=== PATIENT | female | born 1990 | race Caucasian/White ===

== ENCOUNTER 2017-04-22 17:52 | Emergency (ER) | payer OTHER ==
[2017-04-22 18:28] VITALS: BP 104/69
[2017-04-22] MEDS ORDERED: Ibuprofen 800 MG Tab PO ONE (18:48)
--- NOTE | 2017-04-22 18:49 | EDM.PDOC ---
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 She ran out today. Patient usually goes to Dr. No but was in the shower all day due to her pain and was unable to call him. When she got out of the shower this evening she felt her knees because pain was so severe. Patient does have anxiety and has meds for this. Review of systems: As per history of present illness and below otherwise all systems reviewed and negative. Past medical history: As per history of present illness and as reviewed below otherwise noncontributory. Surgical history: As per history of present illness and as reviewed below otherwise noncontributory. Social history: No reported history of drug or alcohol abuse. Family history: As per history of present illness and as reviewed below otherwise noncontributory. Physical exam: General: Well developed, well nourished in NAD, tearful HEENT: Atraumatic, normocephalic, pupils reactive, negative for conjunctival pallor or scleral icterus, mucous membranes moist, throat clear, neck supple, nontender, trachea midline. Poor dentition with multiple dental caries Lungs: Clear to auscultation, breath sounds equal bilaterally, chest nontender. Heart: S1S2, regular, negative for clicks, rubs, or JVD. Abdomen: Soft, nondistended, nontender. Negative for masses or hepatosplenomegaly. Negative for costovertebral tenderness. Pelvis: Stable nontender. Genitourinary: Deferred. Rectal: Deferred. Extremities: Atraumatic, negative for cords or calf pain. Neurovascular unremarkable. Neuro: Awake, alert, oriented. Cranial nerves II through XII unremarkable. Cerebellum unremarkable. Motor and sensory unremarkable throughout. Exam nonfocal. Diagnostics: [] Therapeutics: [] Impression: []Chronic pain Plan: [] Definitive disposition and diagnosis as appropriate pending reevaluation and review of above. Oral/Mouth Pain Score (Numeric/FACES): 8 - Related Data Allergies Allergy/AdvReac Type Severity Reaction Status Date / Time grass Allergy Hives Uncoded 04/22/17 18:28 Home Meds: Home Meds Azithromycin [IJD: Azithromycin] 250 mg PO DAILY 04/22/17 [History] Diclofenac Sodium [IJD: Diclofenac Sodium] 75 mg PO .TWICE DAILY W MEALS PRN # 20 tab.ec 04/22/17 [Rx] hydrOXYzine HCl [Atarax] 25 mg PO DAILY 04/22/17 [History] traMADol [Ultram] 50 mg PO Q6H PRN 04/22/17 [History] Past Medical History HEENT History: Reports: Other (See Below) Other HEENT History: patient has jaw arthritis, and broken teeth Cardiovascular History: Reports: None Respiratory History: Reports: Asthma Gastrointestinal History: Reports: None Genitourinary History: Reports: None [employer] History: Reports: None Musculoskeletal History: Reports: None Neurological History: Reports: None Psychiatric History: Reports: None Endocrine/Metabolic History: Reports: None Hematologic History: Reports: Anemia Immunologic History: Reports: None Oncologic (Cancer) History: Reports: None Dermatologic History: Reports: None - Infectious Disease History Infectious Disease History: Reports: Chicken Pox - Past Surgical History Head Surgeries/Procedures: Reports: None HEENT Surgical History: Reports: Tonsillectomy Musculoskeletal Surgical History: Reports: None Dermatological Surgical History: Reports: None Social & Family History - Family History Family Medical History: Noncontributory - Tobacco Use Smoking Status *Q: Current Every Day Smoker Years of Tobacco use: 5 Packs/Tins Daily: 0.5 - Caffeine Use Caffeine Use: Reports: Coffee, Energy Drinks - Alcohol Use Days Per Week of Alcohol Use: 1 Number of Drinks Per Day: 3 Total Drinks Per Week: 3 - Recreational Drug Use Recreational Drug Use: No Drug Use in Last 12 Months: No Recreational Drug Type: Reports: Methamphetamine (2 years ago 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 living in [place] - quit cold turkey and has not used) ED ROS ENT - Review of Systems Review Of Systems: See Below (See history of present illness) ED EXAM, ENT - Physical Exam Exam: See Below (See history of present illness) Course - Vital Signs Last Recorded V/S: Last Vital Signs Temp 99 F 04/22/17 18:24 Pulse 124 H 04/22/17 18:24 Resp 12 04/22/17 18:24 BP 104/69 04/22/17 18:24 Pulse Ox 97 04/22/17 18:24 - Orders/Labs/Meds Meds: Medications Discontinued Medications Generic Name Dose Route Start Last Admin Trade Name Garettq PRN Reason Stop Dose Admin Ibuprofen 800 mg 04/22/17 18:48 Motrin PO 04/22/17 18:49 ONETIME ONE Departure - Departure Time of Disposition: 18:51 Disposition: Home, Self-Care 01 Condition: Good Clinical Impression: Chronic jaw pain - Discharge Information Prescriptions: Diclofenac Sodium [IJD: Diclofenac Sodium] 75 mg PO .TWICE DAILY W MEALS PRN # 20 tab.ec PRN Reason: Pain Referrals: Johnny No DO [Physician] - (As needed) Forms: ED Department Discharge Additional Instructions: The following information is given to patients seen in the emergency department who are being discharged to home. This information is to outline your options for follow-up care. We provide all patients seen in our emergency department with a follow-up referral. The need for follow-up, as well as the timing and circumstances, are variable depending upon the specifics of your emergency department visit. If you don't have a primary care physician on staff, we will provide you with a referral. We always advise you to contact your personal physician following an emergency department visit to inform them of the circumstance of the visit and for follow-up with them and/or the need for any referrals to a consulting specialist. The emergency department will also refer you to a specialist when appropriate. This referral assures that you have the opportunity for follow-up care with a specialist. All of these measure are taken in an effort to provide you with optimal care, which includes your follow-up. Under all circumstances we always encourage you to contact your private physician who remains a resource for coordinating your care. When calling for follow-up care, please make the office aware that this follow-up is from your recent emergency room visit. If for any reason you are refused follow-up, please contact the [facility] Emergency Department at and asked to speak to the emergency department charge nurse. Diclofenac as directed for pain, heat to jaw soft diet follow-up with Dr. No next available appointment
== END 2017-04-22 19:02 | disposition home or self-care (01) ==
LOC: MW.ED 17:52
DX: G89.29 Other chronic pain (principal); R68.84 Jaw pain; F17.210 Nicotine dependence, cigarettes, uncomplicated; Z91.09 Other allergy status, other than to drugs and biological substances
CPT/HCPCS: 99282; A9270

== ENCOUNTER 2021-01-03 16:16 | Emergency (ER) | payer SELFPAY ==
[2021-01-03 17:22] VITALS: BP 136/73; PULSE 82
[2021-01-03] MEDS ORDERED: Acetaminophen/oxyCODONE 325-10 MG Tab PO ONE (17:43)
[2021-01-03] MEDS ORDERED: HYDROmorphone 1 MG/ML Syringe IM ONE (17:54)
[2021-01-03] MEDS ORDERED: ALPRAZolam 0.5 MG Tab PO ONE (17:54)
--- NOTE | 2021-01-03 18:19 | EDM.PDOC ---
<En Avila - Last Filed: 01/03/21 18:41> ED HPI GENERAL MEDICAL PROBLEM - General Chief Complaint: Upper Extremity Injury/Pain Stated Complaint: WRIST INJURY Time Seen by Provider: 01/03/21 17:15 - Related Data Allergies Allergy/AdvReac Type Severity Reaction Status Date / Time grass Allergy Hives Uncoded 01/03/21 16:42 Home Meds: Home Meds Azithromycin [IJD: Azithromycin] 250 mg PO DAILY 04/22/17 [History] Diclofenac Sodium [IJD: Diclofenac Sodium] 75 mg PO .TWICE DAILY W MEALS PRN #20 tab.ec 04/22/17 [Rx] hydrOXYzine HCl [Atarax] 25 mg PO DAILY 04/22/17 [History] traMADol [Ultram] 50 mg PO Q6H PRN 04/22/17 [History] Acetaminophen/oxyCODONE [Percocet 325-10 MG] 1 tab PO Q4H PRN #24 tab 01/03/21 [Rx] ED TRAUMA EXTREMITY PROCEDURES - Splinting Left Upper Extremity Splint Site: wrist Pre-Procedure NV Status: Normal Post-Procedure NV Status: Normal Splint Material: Fiberglass Splint Design: Posterior Applied & Form Fitted By: Nurse Provider Post-Splint Application NV Check: NV Status Normal Complications: No Departure - Departure Disposition: Home, Self-Care 01 Clinical Impression: Other intraarticular fracture of lower end of left radius, initial encounter for open fracture type IIIA, IIIB, or IIIC - Discharge Information Prescriptions: Acetaminophen/oxyCODONE [Percocet 325-10 MG] 1 tab PO Q4H PRN #24 tab PRN Reason: Pain (Severe 7-10) Instructions: Radial Fracture, Cast or Splint Care, Adult, [id number] Referrals: Yair Santoyo MD [Primary Care Provider] - Aleksander Rowley MD [Ordering Only Provider] - Forms: ED Department Discharge Additional Instructions: Ice and elevate. You need to follow-up with Dr. De La Cruz. Call the [facility] in [place] and get an appointment Dr. Cortez early next week. [facility] - Primary Care [address] [place] [id number] [address] [place] [address] The following information is given to patients seen in the emergency department who are being discharged to home. This information is to outline your options for follow-up care. We provide all patients seen in our emergency department with a follow-up referral. The need for follow-up, as well as the timing and circumstances, are variable depending upon the specifics of your emergency department visit. If you don't have a primary care physician on staff, we will provide you with a referral. We always advise you to contact your personal physician following an emergency department visit to inform them of the circumstance of the visit and for follow-up with them and/or the need for any referrals to a consulting specialist. The emergency department will also refer you to a specialist when appropriate. This referral assures that you have the opportunity for follow-up care with a specialist. All of these measure are taken in an effort to provide you with optimal care, which includes your follow-up. Under all circumstances we always encourage you to contact your private physician who remains a resource for coordinating your care. When calling for follow-up care, please make the office aware that this follow-up is from your recent emergency room visit. If for any reason you are refused follow-up, please contact the [facility] Emergency Department at and asked to speak to the emergency department charge nurse. <Charles Fields - Last Filed: 01/04/21 05:55> ED HPI GENERAL MEDICAL PROBLEM - History of Present Illness INITIAL COMMENTS - FREE TEXT/NARRATIVE: History of present illness: [] The patient fell off a hover board just prior to arrival. She has injury to her left wrist. There is deformity and severe pain. Is worse with movement. Review of systems: As per history of present illness and below otherwise all systems reviewed and negative. Past medical history: As per history of present illness and as reviewed below otherwise noncontributory. Surgical history: As per history of present illness and as reviewed below otherwise noncontributory. Social history: No reported history of drug or alcohol abuse. Family history: As per history of present illness and as reviewed below otherwise noncontributory. Physical exam: Constitutional - well developed, well-nourished and in no acute distress HEENT - normocephalic, no evidence of trauma - external nose and mouth normal - no mass in neck and no JVD - mucosae moist EYES - full EOM, PERRL, no icterus - no evidence of inflammation, injection, or drainage Respiratory - no respiratory distress, equal bilateral expansion Cardiovascular the capillary refill and warmth and color intact in the distal left upper extremity. Musculoskeletal deformity of the left wrist with tenderness at the distal radius. No gross deformity of long bones or joints - no tenderness, swelling or edema Neurologic -motor sensory intact in the distal left upper extremity alert and oriented times four - CN II-XII grossly intact - motor sensory and coordination symmetrically normal Psychiatric - appropriate mood and affect with normal thought content Hematologic - No petechiae or purpura - mucosa appropriate color and sclera not pale - normal nail bed color and refill Integument - no rash or evidence of trauma - normal turgor Diagnostics: [] Therapeutics: [] Impression: [] Plan: [] Definitive disposition and diagnosis as appropriate pending reevaluation and review of above. left wrist Pain Score (Numeric/FACES): 10 Past Medical History HEENT History: Reports: Other (See Below) Other HEENT History: patient has jaw arthritis, and broken teeth Cardiovascular History: Reports: None Respiratory History: Reports: Asthma Gastrointestinal History: Reports: None Genitourinary History: Reports: None [employer] History: Reports: None Musculoskeletal History: Reports: None Neurological History: Reports: None Psychiatric History: Reports: ADHD, Anxiety, PTSD Endocrine/Metabolic History: Reports: None Hematologic History: Reports: Anemia Immunologic History: Reports: None Oncologic (Cancer) History: Reports: None Dermatologic History: Reports: None - Infectious Disease History Infectious Disease History: Reports: Chicken Pox - Past Surgical History Head Surgeries/Procedures: Reports: None HEENT Surgical History: Reports: Tonsillectomy Musculoskeletal Surgical History: Reports: None Dermatological Surgical History: Reports: None Social & Family History - Family History Family Medical History: No Pertinent Family History - Tobacco Use Tobacco Use Status *Q: Current Every Day Tobacco User Years of Tobacco use: 10 Packs/Tins Daily: 1 - Caffeine Use Caffeine Use: Reports: Coffee, Energy Drinks - Recreational Drug Use Recreational Drug Use: No Review of Systems - Review of Systems Review Of Systems: Comprehensive ROS is negative, except as noted in HPI. ED EXAM, GENERAL - Physical Exam Exam: See Below Free Text/Narrative:: My physical exam is in the HPI Course - Vital Signs Text/Narrative:: I discussed the case with and Donald who agreed to follow-up. He said to do the best we cannot reduction splinted and send the films to Donald. The patient will be hung in finger traps if we can arrange that and then a splint applied. At the end of my shift we still have not obtained finger traps. My partner will supervise the placement of a splint, reevaluate neurovascular structures and send the films to Mora Bennett Regarding DME the splint is applied for comminuted distal radius fracture and the splint will be needed for 4 weeks. This is to prevent further injury or displacement. 05 50 3 AM 01/04/[address] Avila applied the splint verified neurovascular integrity and reviewed the post x-ray. Patient was discharged last night in satisfactory condition. Last Recorded V/S: Last Vital Signs Temp 36.7 C 01/03/21 17:22 Pulse 82 01/03/21 17:22 Resp 18 01/03/21 17:22 BP 136/73 01/03/21 17:22 Pulse Ox 97 01/03/21 17:22 - Orders/Labs/Meds Orders: Active Orders 24 hr Category Date Time Status DME for Discharge [COMM] Stat Oth 01/03/21 18:22 Ordered DME for Discharge [COMM] Stat Oth 01/03/21 18:49 Ordered Meds: Medications Discontinued Medications Generic Name Dose Route Start Last Admin Trade Name Jose PRN Reason Stop Dose Admin Alprazolam 0.5 mg 01/03/21 17:54 01/03/21 18:03 Alprazolam 0.5 Mg Tab PO 01/03/21 17:55 Not Given NOW ONE Hydromorphone HCl 1 mg 01/03/21 17:54 01/03/21 18:09 Hydromorphone 1 Mg/Ml Syringe IM 01/03/21 17:55 1 mg ONETIME ONE Administration Oxycodone/Acetaminophen 1 tab 01/03/21 17:43 01/03/21 17:51 Acetaminophen/Oxycodone 325-10 Mg Tab PO 01/03/21 17:44 Not Given ONETIME ONE Departure - Departure Time of Disposition: 20:30 Condition: Good Sepsis Event Note (ED) - Evaluation Sepsis Screening Result: No Definite Risk - My Orders Last 24 Hours: My Active Orders 01/03/21 18:22 DME for Discharge [COMM] Stat - Assessment/Plan Last 24 Hours: My Active Orders 01/03/21 18:22 DME for Discharge [COMM] Stat
--- NOTE | 2021-01-03 18:22 | CR ---
Indication: hover board injury Technique: Three views left wrist Comparison: None Findings: Bones: There is an impacted, comminuted, intra-articular fracture of the distal radius. Joint spaces: Unremarkable. Soft tissues: Unremarkable. Impression: Impacted, comminuted, intra-articular fracture of the distal radius. Dictated by Alessandra Patiño MD @ 01/03/2021 6:21:39 PM (Electronically Signed)
== END 2021-01-03 18:54 | disposition home or self-care (01) ==
LOC: MW.ED 16:16
DX: S52.5 Fracture of lower end of radius (principal); Z91.09 Other allergy status, other than to drugs and biological substances; Z72.0 Tobacco use; V00.848A Other accident with standing micro-mobility pedestrian conveyance, initial encounter; Y93.I9 Activity, other involving external motion
CPT/HCPCS: 29125; 73110; 96372; 99283; J1170

== ENCOUNTER 2022-09-11 00:21 | Emergency (ER) | payer BC ==
[2022-09-11] MEDS ORDERED: Clindamycin Phosphate in D5W 900 MG in Premix Bag 1 BAG IV ONE ×2 (00:38)
[2022-09-11] MEDS ORDERED: Sodium Chloride 0.9% 1,000 ML IV ONE (00:44)
[2022-09-11] MEDS ORDERED: Ibuprofen 600 MG Tab PO ONE (00:45)
[2022-09-11 00:53] LABS: BASOPHILS PERCENT AUTO 0.3 % (0.0-1.5); EOSINOPHILS ABSOLUTE AUTO 0.1 K/uL (0.0-0.7); EOSINOPHILS PERCENT AUTO 1.1 % (0.0-7.0); HEMATOCRIT 36.8 % (36.0-46.0); HEMOGLOBIN 12.1 g/dL (12.0-16.0); LYMPHOCYTES ABSOLUTE AUTO 1.5 K/uL (0.6-2.4); LYMPHOCYTES PERCENT AUTO 16.3 % (16.0-40.0); MEAN CORPUSCULAR HEMOGLOBIN 26.8 pg (27.0-32.0); MEAN CORPUSCULAR HGB CONC 32.9 g/dL (31.0-37.0); MEAN CORPUSCULAR VOLUME 81.6 fL (80.0-98.0); MONOCYTES ABSOLUTE AUTO 0.5 K/uL (0.0-0.8); MONOCYTES PERCENT AUTO 5.5 % (0.0-15.0); NEUTROPHILS ABSOLUTE AUTO 7.3 K/uL (1.4-5.7); NEUTROPHILS PERCENT AUTO 76.8 % (48.0-80.0); PLATELET COUNT,PLT 144 K/uL (150-400); RED BLOOD CELL COUNT 4.51 M/uL (4.30-5.90); WHITE BLOOD CELL COUNT,WBC 9.44 K/uL (4.0-11.0)
[2022-09-11 01:16] LABS: A/G RATIO 1.1 (0.9-1.6); ALBUMIN 3.8 g/dL (3.4-5.0); BILIRUBIN TOTAL 0.7 mg/dL (0.2-1.0); CALCIUM 8.9 mg/dL (8.5-10.1); CARBON DIOXIDE,CO2 24.3 mmol/L (21.0-32.0); CREATININE 0.8 mg/dL (0.6-1.0); EST CRCL DRUG DOSING (CG) 89.6 mL/min; POTASSIUM,K 3.3 mmol/L (3.5-5.1); PROTEIN TOTAL,TP 7.4 g/dL (6.4-8.2)
[2022-09-11] MEDS ORDERED: Iopamidol 755 MG/ML 500 ML Multipack Bottle IVPUSH STA (02:01)
[2022-09-11 03:03] VITALS: BP 105/73; PULSE 89
== END 2022-09-11 03:03 | disposition home or self-care (01) ==
LOC: MW.ED 00:21
DX: L02.01 Cutaneous abscess of face (principal); J45.909 Unspecified asthma, uncomplicated; Z91.048 Other nonmedicinal substance allergy status
CPT/HCPCS: 36415; 70487; 80053; 84703; 85025; 99284; A9270; J3490; J7030; Q9967